=== PATIENT | male | born 1935 | race Caucasian/White ===

== ENCOUNTER 2021-12-20 17:41 | Inpatient (IN) ==
[2021-12-20] MEDS ORDERED: FUROSEMIDE 40 MG/4 ML VIAL IV STA (21:44)
[2021-12-20] MEDS ORDERED: ONDANSETRON 4 MG/2 ML VIAL IV STA (21:44)
[2021-12-20] MEDS ORDERED: methylPREDNISolone SOD SUC 125 MG/2 ML VIAL IV STA (21:44)
[2021-12-20 21:52] LABS: Basophils # 0.1 10*3/uL (0.0-0.2); Basophils % 0.7 % (0.0-0.8); Eosinophils # 1.1 10*3/uL (0.0-0.87); Eosinophils % 9.5 % (0.00-10.9); Hematocrit 28.2 VOL% (42.0-52.0); Hemoglobin 8.3 GM/DL (14.0-18.0); Immature Granulocytes % 0.4 %; Immature Granulocytes Absolute 0.05 #; Lymphocytes # 1.7 10*3/uL (1.4-4.0); Lymphocytes % 14.4 % (21.2-54.2); Mean Corpuscular HGB Conc 29.4 GM/DL (32-36); Mean Corpuscular Volume 81.7 FL (87-102); Mean Platelet Volume 10.4 FL (9.6-12.0); Monocytes % 11.6 % (1.7-12.7); Neutrophils % 63.4 % (38.7-73.9); Platelet Count 378 T/CUMM (130-400); Red Blood Count 3.45 MC/CUMM (3.8-5.5); Red Cell Distribution Width 17.1 % (9.3-17.3); White Blood Count 11.4 T/CUMM (4-12)
[2021-12-20] MEDS ORDERED: MORPHINE 4 MG/1 ML VIAL ONE (21:52)
[2021-12-20] MEDS ORDERED: MORPHINE 4 MG/1 ML VIAL IV STA (21:55)
[2021-12-20 21:59] LABS: PT Patient Result 11.5 SECS (10.5-12.0)
[2021-12-20] MEDS ORDERED: ALBUTEROL NEB SOLN 5 MG/ML 20 ML/BOTTLE CONT NEB SCH (22:00)
[2021-12-20 22:12] LABS: Alanine Aminotransferase 21 U/L (16-61); Alkaline Phosphatase 64 U/L (45-117); Aspartate Amino Transferase 17 U/L (0-37); Bilirubin,Total < 0.39 MG/DL (0.20-1.00); Blood Urea Nitrogen 39 MG/DL (7-18); Calcium 8.6 MG/DL (8.5-10.1); Carbon Dioxide 30 MMOL/L (21-32); Estimated Glom Filtration Rate 39 ML/MIN; Glucose 151 MG/DL (74-106); Osmolality,Calculated 286.7 MOS/KG (273-304); Potassium 5.9 MMOL/L (3.5-5.1); Sodium 138 MMOL/L (136-145); Total Protein 7.6 G/DL (6.4-8.2)
[2021-12-20] MEDS ORDERED: SODIUM CHLORIDE 0.9% 500 ML IV STA (22:27)
[2021-12-20] MEDS ORDERED: cefTRIAXone 1,000 MG in SODIUM CHLORIDE 0.9% 100 ML IV STA (22:28)
[2021-12-20] MEDS ORDERED: ACETAMINOPHEN 325 MG TABLET PO PRN (23:43)
[2021-12-20] MEDS ORDERED: GLUCAGON 1 MG VIAL IM PRN (23:43)
[2021-12-20] MEDS ORDERED: ALBUTEROL/IPRATROPIUM 3 ML NEB RESP TX SCH (23:43)
[2021-12-20] MEDS ORDERED: ONDANSETRON 4 MG/2 ML VIAL IV PRN (23:43)
[2021-12-20] MEDS ORDERED: DEXTROSE 10% 250 ML BAG IV PRN (23:46)
[2021-12-21] MEDS: SODIUM CHLORIDE 0.9% 1,000 ML IV SCH ×2 (01:04→18:47)
[2021-12-21] MEDS: INSULIN REGULAR 100 UNIT/ML SUBCUT SCH ×4 (01:09→18:47)
[2021-12-21 05:09] LABS: Basophils % 0.4 % (0.0-0.8); Eosinophils % 0.3 % (0.00-10.9); Hematocrit 25.9 VOL% (42.0-52.0); Hemoglobin 7.7 GM/DL (14.0-18.0); Immature Granulocytes % 0.9 %; Immature Granulocytes Absolute 0.09 #; Lymphocytes # 0.6 10*3/uL (1.4-4.0); Lymphocytes % 5.7 % (21.2-54.2); Mean Corpuscular HGB Conc 29.7 GM/DL (32-36); Mean Corpuscular Volume 81.2 FL (87-102); Mean Platelet Volume 10.4 FL (9.6-12.0); Monocytes % 1.1 % (1.7-12.7); Neutrophils % 91.6 % (38.7-73.9); Platelet Count 361 T/CUMM (130-400); Red Blood Count 3.19 MC/CUMM (3.8-5.5); Red Cell Distribution Width 16.9 % (9.3-17.3); White Blood Count 9.9 T/CUMM (4-12)
[2021-12-21 05:32] LABS: Albumin 2.9 G/DL (3.4-5.0); Bilirubin,Total 0.4 MG/DL (0.20-1.00); Calcium 8.4 MG/DL (8.5-10.1); Hypochromia 1+; Lymphocytes 3 % (20-55); Microcytosis 1+; Polychromasia Slight; Potassium 5.1 MMOL/L (3.5-5.1); Segmented Neutrophils 96 % (50-85); Total Cells Counted 100; Total Protein 7.4 G/DL (6.4-8.2)
[2021-12-21 05:33] LABS: Ovalocytes Slight; Platelet Estimate Normal
[2021-12-21] MEDS: DOCUSATE SODIUM 100 MG CAPSULE PO SCH ×2 (09:00→21:32)
[2021-12-21] MEDS: ENOXAPARIN 40 MG/0.4 ML SYRINGE SUBCUT SCH (09:44)
[2021-12-21] MEDS: PANTOPRAZOLE 40 MG VIAL IV SCH (09:45)
[2021-12-21] MEDS: methylPREDNISolone SOD SUC 40 MG/1 ML VIAL IV SCH ×2 (10:31→21:32)
[2021-12-21] MEDS ORDERED: NITROGLYCERIN SL 0.4 MG TABLET SL PRN (10:39)
[2021-12-21] MEDS: ALBUTEROL/IPRATROPIUM 3 ML NEB RESP TX SCH ×2 (12:20→19:40)
[2021-12-21] MEDS: ASPIRIN CHEW 81 MG TABLET PO SCH (15:27)
[2021-12-21] MEDS: MULTIVITAMIN (CENTRUM) TABLET PO SCH (15:27)
[2021-12-21] MEDS: BENZONATATE 100 MG CAPSULE PO SCH ×2 (15:28→21:32)
[2021-12-21] MEDS: GABAPENTIN 300 MG CAPSULE PO SCH ×3 (15:28→21:31)
[2021-12-21] MEDS: AMITRIPTYLINE 50 MG TABLET PO SCH ×2 (17:48→21:31)
[2021-12-21] MEDS: PENTOXIFYLLINE 400 MG TABLET PO SCH ×2 (17:48→18:15)
[2021-12-21] MEDS: glipiZIDE 5 MG TABLET PO SCH (18:14)
[2021-12-21] MEDS: INSULIN GLARGINE 100 UNIT/ML SUBCUT SCH (21:30)
[2021-12-21] MEDS: tiZANidine 4 MG TABLET PO SCH (21:30)
[2021-12-21] MEDS: traZODone 50 MG TABLET PO SCH (21:31)
[2021-12-21] MEDS: MORPHINE ER 30 MG TABLET PO SCH (21:31)
[2021-12-21] MEDS: carvediloL 3.125 MG TABLET PO SCH (21:32)
[2021-12-21] MEDS: SIMVASTATIN 40 MG TABLET PO SCH (21:32)
[2021-12-21] MEDS: cefTRIAXone 1,000 MG in SODIUM CHLORIDE 0.9% 100 ML IV SCH (21:32)
[2021-12-22] MEDS: INSULIN REGULAR 100 UNIT/ML SUBCUT SCH ×5 (00:02→18:40)
[2021-12-22] MEDS: ALBUTEROL/IPRATROPIUM 3 ML NEB RESP TX SCH ×4 (01:27→19:58)
[2021-12-22] MEDS: SODIUM CHLORIDE 0.9% 1,000 ML IV SCH (05:21)
[2021-12-22 05:26] LABS: Basophils % 0.1 % (0.0-0.8); Hematocrit 25.1 VOL% (42.0-52.0); Hemoglobin 7.4 GM/DL (14.0-18.0); Immature Granulocytes % 1.3 %; Immature Granulocytes Absolute 0.13 #; Lymphocytes % 9.8 % (21.2-54.2); Mean Corpuscular HGB Conc 29.5 GM/DL (32-36); Mean Corpuscular Volume 80.7 FL (87-102); Mean Platelet Volume 10.1 FL (9.6-12.0); Monocytes % 5.4 % (1.7-12.7); Neutrophils % 83.4 % (38.7-73.9); Platelet Count 339 T/CUMM (130-400); Red Blood Count 3.11 MC/CUMM (3.8-5.5); Red Cell Distribution Width 17.1 % (9.3-17.3); White Blood Count 10.1 T/CUMM (4-12)
[2021-12-22 05:47] LABS: Calcium 8.5 MG/DL (8.5-10.1); Osmolality,Calculated 284.4 MOS/KG (273-304); Potassium 5.7 MMOL/L (3.5-5.1)
[2021-12-22] MEDS ORDERED: FUROSEMIDE 40 MG/4 ML VIAL IV ONE (08:48)
[2021-12-22] MEDS ORDERED: ENALAPRIL 5 MG TABLET PO SCH (09:00)
[2021-12-22] MEDS: glipiZIDE 10 MG TABLET PO SCH (09:00)
[2021-12-22 09:30] LABS: % Iron Saturation 4.1 % (18-50); Ferritin 13.8 ng/mL (26-388)
[2021-12-22] MEDS: methylPREDNISolone SOD SUC 40 MG/1 ML VIAL IV SCH ×2 (09:51→21:45)
[2021-12-22] MEDS: ENOXAPARIN 40 MG/0.4 ML SYRINGE SUBCUT SCH (09:52)
[2021-12-22] MEDS: PANTOPRAZOLE 40 MG VIAL IV SCH (09:52)
[2021-12-22] MEDS: BENZONATATE 100 MG CAPSULE PO SCH ×3 (09:53→21:44)
[2021-12-22] MEDS: carvediloL 3.125 MG TABLET PO SCH ×2 (09:53→21:45)
[2021-12-22] MEDS: SERTRALINE 50 MG TABLET PO SCH (09:53)
[2021-12-22] MEDS: ASCORBIC ACID 500 MG TABLET PO SCH (09:54)
[2021-12-22] MEDS: PENTOXIFYLLINE 400 MG TABLET PO SCH ×3 (09:54→16:34)
[2021-12-22] MEDS: AMITRIPTYLINE 50 MG TABLET PO SCH ×3 (09:54→21:44)
[2021-12-22] MEDS: GABAPENTIN 300 MG CAPSULE PO SCH ×4 (09:54→21:45)
[2021-12-22] MEDS: DOCUSATE SODIUM 100 MG CAPSULE PO SCH ×2 (09:54→21:45)
[2021-12-22] MEDS: MORPHINE ER 30 MG TABLET PO SCH ×3 (10:39→21:44)
[2021-12-22] MEDS: sitaGLIPtin 25 MG TABLET PO SCH (12:18)
[2021-12-22] MEDS: ASPIRIN CHEW 81 MG TABLET PO SCH (12:19)
[2021-12-22] MEDS: MULTIVITAMIN (CENTRUM) TABLET PO SCH (12:19)
[2021-12-22] MEDS: glipiZIDE 5 MG TABLET PO SCH (16:34)
[2021-12-22] MEDS: tiZANidine 4 MG TABLET PO SCH (21:44)
[2021-12-22] MEDS: traZODone 50 MG TABLET PO SCH (21:45)
[2021-12-22] MEDS: SIMVASTATIN 40 MG TABLET PO SCH (21:45)
[2021-12-22] MEDS: INSULIN GLARGINE 100 UNIT/ML SUBCUT SCH (21:46)
[2021-12-22] MEDS: cefTRIAXone 1,000 MG in SODIUM CHLORIDE 0.9% 100 ML IV SCH (21:46)
[2021-12-23] MEDS: INSULIN REGULAR 100 UNIT/ML SUBCUT SCH ×4 (00:05→17:57)
[2021-12-23] MEDS: ALBUTEROL/IPRATROPIUM 3 ML NEB RESP TX SCH ×4 (01:38→19:35)
[2021-12-23 05:43] LABS: Basophils % 0.1 % (0.0-0.8); Hematocrit 23.6 VOL% (42.0-52.0); Hemoglobin 7.1 GM/DL (14.0-18.0); Immature Granulocytes % 1.1 %; Immature Granulocytes Absolute 0.11 #; Lymphocytes # 0.5 10*3/uL (1.4-4.0); Lymphocytes % 4.8 % (21.2-54.2); Mean Corpuscular HGB Conc 30.1 GM/DL (32-36); Mean Corpuscular Volume 81.1 FL (87-102); Mean Platelet Volume 9.8 FL (9.6-12.0); Monocytes % 3.4 % (1.7-12.7); Neutrophils % 90.6 % (38.7-73.9); Platelet Count 336 T/CUMM (130-400); Red Blood Count 2.91 MC/CUMM (3.8-5.5); White Blood Count 10.3 T/CUMM (4-12)
[2021-12-23 06:01] LABS: Calcium 8.2 MG/DL (8.5-10.1); Osmolality,Calculated 288.2 MOS/KG (273-304); Potassium 5.7 MMOL/L (3.5-5.1)
[2021-12-23 06:03] LABS: Band Neutrophils 1 % (0-10); Hypochromia 1+; Lymphocytes 2 % (20-55); Microcytosis 1+; Platelet Estimate Adequate; Segmented Neutrophils 95 % (50-85); Total Cells Counted 100
[2021-12-23] MEDS: PENTOXIFYLLINE 400 MG TABLET PO SCH ×4 (08:32→16:24)
[2021-12-23] MEDS: BENZONATATE 100 MG CAPSULE PO SCH ×3 (08:32→22:02)
[2021-12-23] MEDS: glipiZIDE 10 MG TABLET PO SCH (08:32)
[2021-12-23] MEDS: GABAPENTIN 300 MG CAPSULE PO SCH ×5 (08:32→22:03)
[2021-12-23] MEDS: ASCORBIC ACID 500 MG TABLET PO SCH (08:32)
[2021-12-23] MEDS: MORPHINE ER 30 MG TABLET PO SCH ×3 (08:32→22:03)
[2021-12-23] MEDS: AMITRIPTYLINE 50 MG TABLET PO SCH ×3 (08:32→22:02)
[2021-12-23] MEDS: ENOXAPARIN 40 MG/0.4 ML SYRINGE SUBCUT SCH (08:33)
[2021-12-23] MEDS: DOCUSATE SODIUM 100 MG CAPSULE PO SCH ×2 (08:33→22:02)
[2021-12-23] MEDS: methylPREDNISolone SOD SUC 40 MG/1 ML VIAL IV SCH ×2 (08:33→22:04)
[2021-12-23] MEDS: carvediloL 3.125 MG TABLET PO SCH ×2 (08:33→22:03)
[2021-12-23] MEDS: SERTRALINE 50 MG TABLET PO SCH (08:33)
[2021-12-23] MEDS: PANTOPRAZOLE 40 MG VIAL IV SCH (08:33)
[2021-12-23] MEDS ORDERED: FUROSEMIDE 40 MG/4 ML VIAL IV PRN (09:00)
[2021-12-23] MEDS ORDERED: SODIUM CHLORIDE 0.9% 1,000 ML IV PRN (09:00)
[2021-12-23] MEDS: MULTIVITAMIN (CENTRUM) TABLET PO SCH (12:38)
[2021-12-23] MEDS: sitaGLIPtin 25 MG TABLET PO SCH (12:38)
[2021-12-23] MEDS: ASPIRIN CHEW 81 MG TABLET PO SCH (12:38)
[2021-12-23] MEDS: POLYETHYLENE GLYCOL POWDER 17 GM PACK PO SCH (15:51)
[2021-12-23] MEDS: glipiZIDE 5 MG TABLET PO SCH (15:52)
[2021-12-23 18:28] LABS: Hematocrit 31.6 VOL% (42.0-52.0); Hemoglobin 9.6 GM/DL (14.0-18.0)
[2021-12-23] MEDS: tiZANidine 4 MG TABLET PO SCH (22:01)
[2021-12-23] MEDS: SIMVASTATIN 40 MG TABLET PO SCH (22:02)
[2021-12-23] MEDS: traZODone 50 MG TABLET PO SCH (22:03)
[2021-12-23] MEDS: INSULIN GLARGINE 100 UNIT/ML SUBCUT SCH (22:03)
[2021-12-23] MEDS: cefTRIAXone 1,000 MG in SODIUM CHLORIDE 0.9% 100 ML IV SCH (22:04)
[2021-12-24] MEDS: ALBUTEROL/IPRATROPIUM 3 ML NEB RESP TX SCH ×4 (00:51→19:30)
[2021-12-24] MEDS: INSULIN REGULAR 100 UNIT/ML SUBCUT SCH ×4 (05:39→18:20)
[2021-12-24 06:13] LABS: Basophils % 0.2 % (0.0-0.8); Hematocrit 30.4 VOL% (42.0-52.0); Hemoglobin 9.1 GM/DL (14.0-18.0); Immature Granulocytes % 1.7 %; Immature Granulocytes Absolute 0.17 #; Lymphocytes # 0.7 10*3/uL (1.4-4.0); Lymphocytes % 6.7 % (21.2-54.2); Mean Corpuscular HGB Conc 29.9 GM/DL (32-36); Mean Corpuscular Volume 81.3 FL (87-102); Monocytes % 5.3 % (1.7-12.7); Neutrophils % 86.1 % (38.7-73.9); Platelet Count 340 T/CUMM (130-400); Red Blood Count 3.74 MC/CUMM (3.8-5.5); White Blood Count 9.9 T/CUMM (4-12)
[2021-12-24 06:29] LABS: Calcium 8.4 MG/DL (8.5-10.1); Potassium 5.3 MMOL/L (3.5-5.1)
[2021-12-24] MEDS: ASCORBIC ACID 500 MG TABLET PO SCH (08:40)
[2021-12-24] MEDS: PENTOXIFYLLINE 400 MG TABLET PO SCH ×3 (08:40→16:18)
[2021-12-24] MEDS: carvediloL 3.125 MG TABLET PO SCH ×2 (08:40→21:31)
[2021-12-24] MEDS: PANTOPRAZOLE 40 MG VIAL IV SCH (08:40)
[2021-12-24] MEDS: ENOXAPARIN 40 MG/0.4 ML SYRINGE SUBCUT SCH (08:40)
[2021-12-24] MEDS: methylPREDNISolone SOD SUC 40 MG/1 ML VIAL IV SCH (08:40)
[2021-12-24] MEDS: DOCUSATE SODIUM 100 MG CAPSULE PO SCH ×2 (08:41→21:31)
[2021-12-24] MEDS: glipiZIDE 10 MG TABLET PO SCH (08:41)
[2021-12-24] MEDS: GABAPENTIN 300 MG CAPSULE PO SCH ×4 (08:41→21:31)
[2021-12-24] MEDS: POLYETHYLENE GLYCOL POWDER 17 GM PACK PO SCH (08:41)
[2021-12-24] MEDS: SERTRALINE 50 MG TABLET PO SCH (08:41)
[2021-12-24] MEDS: MORPHINE ER 30 MG TABLET PO SCH ×3 (08:41→21:31)
[2021-12-24] MEDS: AMITRIPTYLINE 50 MG TABLET PO SCH ×3 (08:41→21:30)
[2021-12-24] MEDS: BENZONATATE 100 MG CAPSULE PO SCH ×3 (08:41→21:32)
[2021-12-24] MEDS: sitaGLIPtin 25 MG TABLET PO SCH (12:38)
[2021-12-24] MEDS: ASPIRIN CHEW 81 MG TABLET PO SCH (12:38)
[2021-12-24] MEDS: MULTIVITAMIN (CENTRUM) TABLET PO SCH (12:38)
[2021-12-24] MEDS: glipiZIDE 5 MG TABLET PO SCH (16:18)
[2021-12-24] MEDS: traZODone 50 MG TABLET PO SCH (21:31)
[2021-12-24] MEDS: SIMVASTATIN 40 MG TABLET PO SCH (21:31)
[2021-12-24] MEDS: INSULIN GLARGINE 100 UNIT/ML SUBCUT SCH (21:32)
[2021-12-24] MEDS: cefTRIAXone 1,000 MG in SODIUM CHLORIDE 0.9% 100 ML IV SCH (21:32)
[2021-12-24] MEDS: tiZANidine 4 MG TABLET PO SCH (21:32)
[2021-12-25] MEDS: ALBUTEROL/IPRATROPIUM 3 ML NEB RESP TX SCH ×4 (00:20→19:37)
[2021-12-25] MEDS: INSULIN REGULAR 100 UNIT/ML SUBCUT SCH ×5 (00:23→23:54)
[2021-12-25 05:32] LABS: Basophils % 0.2 % (0.0-0.8); Eosinophils # 0.1 10*3/uL (0.0-0.87); Eosinophils % 0.5 % (0.00-10.9); Hematocrit 32.4 VOL% (42.0-52.0); Hemoglobin 9.6 GM/DL (14.0-18.0); Immature Granulocytes % 1.5 %; Immature Granulocytes Absolute 0.16 #; Lymphocytes # 1.8 10*3/uL (1.4-4.0); Lymphocytes % 16.6 % (21.2-54.2); Mean Corpuscular HGB Conc 29.6 GM/DL (32-36); Mean Corpuscular Volume 83.7 FL (87-102); Mean Platelet Volume 10.1 FL (9.6-12.0); Monocytes % 12.4 % (1.7-12.7); Neutrophils % 68.8 % (38.7-73.9); Platelet Count 339 T/CUMM (130-400); Red Blood Count 3.87 MC/CUMM (3.8-5.5); Red Cell Distribution Width 17.3 % (9.3-17.3); White Blood Count 10.8 T/CUMM (4-12)
[2021-12-25 05:46] LABS: Calcium 9.1 MG/DL (8.5-10.1); Osmolality,Calculated 288.5 MOS/KG (273-304); Potassium 4.8 MMOL/L (3.5-5.1)
[2021-12-25] MEDS: POLYETHYLENE GLYCOL POWDER 17 GM PACK PO SCH (09:55)
[2021-12-25] MEDS: MORPHINE ER 30 MG TABLET PO SCH ×3 (09:55→21:00)
[2021-12-25] MEDS: DOCUSATE SODIUM 100 MG CAPSULE PO SCH ×2 (09:55→21:00)
[2021-12-25] MEDS: carvediloL 3.125 MG TABLET PO SCH ×2 (09:55→21:00)
[2021-12-25] MEDS: AMITRIPTYLINE 50 MG TABLET PO SCH ×3 (09:55→21:00)
[2021-12-25] MEDS: ASCORBIC ACID 500 MG TABLET PO SCH (09:56)
[2021-12-25] MEDS: SERTRALINE 50 MG TABLET PO SCH (09:56)
[2021-12-25] MEDS: glipiZIDE 10 MG TABLET PO SCH (09:56)
[2021-12-25] MEDS: GABAPENTIN 300 MG CAPSULE PO SCH ×4 (09:56→21:00)
[2021-12-25] MEDS: methylPREDNISolone SOD SUC 40 MG/1 ML VIAL IV SCH (09:57)
[2021-12-25] MEDS: PANTOPRAZOLE 40 MG VIAL IV SCH (09:57)
[2021-12-25] MEDS: PENTOXIFYLLINE 400 MG TABLET PO SCH ×3 (09:59→16:00)
[2021-12-25] MEDS: ENOXAPARIN 40 MG/0.4 ML SYRINGE SUBCUT SCH (09:59)
[2021-12-25] MEDS: BENZONATATE 100 MG CAPSULE PO SCH ×3 (09:59→20:59)
[2021-12-25] MEDS: ASPIRIN CHEW 81 MG TABLET PO SCH (12:46)
[2021-12-25] MEDS: MULTIVITAMIN (CENTRUM) TABLET PO SCH (12:46)
[2021-12-25] MEDS: sitaGLIPtin 25 MG TABLET PO SCH (12:46)
[2021-12-25] MEDS: glipiZIDE 5 MG TABLET PO SCH (15:54)
[2021-12-25] MEDS: cefTRIAXone 1,000 MG in SODIUM CHLORIDE 0.9% 100 ML IV SCH (20:59)
[2021-12-25] MEDS: SIMVASTATIN 40 MG TABLET PO SCH (21:00)
[2021-12-25] MEDS: tiZANidine 4 MG TABLET PO SCH (21:00)
[2021-12-25] MEDS: traZODone 50 MG TABLET PO SCH (21:02)
[2021-12-25] MEDS: INSULIN GLARGINE 100 UNIT/ML SUBCUT SCH (21:05)
[2021-12-26] MEDS: ALBUTEROL/IPRATROPIUM 3 ML NEB RESP TX SCH ×4 (00:04→19:25)
[2021-12-26] MEDS: INSULIN REGULAR 100 UNIT/ML SUBCUT SCH ×3 (05:50→17:48)
[2021-12-26] MEDS ORDERED: BISACODYL 10 MG SUPP RECTAL PRN (10:15)
[2021-12-26] MEDS: ENOXAPARIN 40 MG/0.4 ML SYRINGE SUBCUT SCH (11:00)
[2021-12-26] MEDS: MORPHINE ER 30 MG TABLET PO SCH ×3 (11:00→21:29)
[2021-12-26] MEDS: AMITRIPTYLINE 50 MG TABLET PO SCH ×3 (11:00→21:28)
[2021-12-26] MEDS: PENTOXIFYLLINE 400 MG TABLET PO SCH ×3 (11:01→17:30)
[2021-12-26] MEDS: carvediloL 3.125 MG TABLET PO SCH ×2 (11:01→21:28)
[2021-12-26] MEDS: DOCUSATE SODIUM 100 MG CAPSULE PO SCH ×2 (11:01→21:28)
[2021-12-26] MEDS: glipiZIDE 10 MG TABLET PO SCH ×4 (11:02→17:32)
[2021-12-26] MEDS: PANTOPRAZOLE 40 MG VIAL IV SCH (11:03)
[2021-12-26] MEDS: GABAPENTIN 300 MG CAPSULE PO SCH ×4 (11:04→21:28)
[2021-12-26] MEDS: methylPREDNISolone SOD SUC 40 MG/1 ML VIAL IV SCH (11:04)
[2021-12-26] MEDS: ASCORBIC ACID 500 MG TABLET PO SCH (11:05)
[2021-12-26] MEDS: BENZONATATE 100 MG CAPSULE PO SCH ×3 (11:05→21:27)
[2021-12-26] MEDS: SERTRALINE 50 MG TABLET PO SCH (11:06)
[2021-12-26] MEDS: POLYETHYLENE GLYCOL POWDER 17 GM PACK PO SCH ×2 (11:06→23:50)
[2021-12-26] MEDS: MULTIVITAMIN (CENTRUM) TABLET PO SCH (13:22)
[2021-12-26] MEDS: ASPIRIN CHEW 81 MG TABLET PO SCH (13:22)
[2021-12-26] MEDS: sitaGLIPtin 25 MG TABLET PO SCH (13:23)
[2021-12-26] MEDS: glipiZIDE 5 MG TABLET PO SCH (17:47)
[2021-12-26] MEDS: traZODone 50 MG TABLET PO SCH (21:28)
[2021-12-26] MEDS: SIMVASTATIN 40 MG TABLET PO SCH (21:28)
[2021-12-26] MEDS: tiZANidine 4 MG TABLET PO SCH (21:29)
[2021-12-26] MEDS: INSULIN GLARGINE 100 UNIT/ML SUBCUT SCH (21:32)
[2021-12-26] MEDS: cefTRIAXone 1,000 MG in SODIUM CHLORIDE 0.9% 100 ML IV SCH (21:37)
[2021-12-27] MEDS: ALBUTEROL/IPRATROPIUM 3 ML NEB RESP TX SCH ×3 (00:09→19:25)
[2021-12-27] MEDS: INSULIN REGULAR 100 UNIT/ML SUBCUT SCH ×4 (00:14→18:39)
[2021-12-27 05:19] LABS: Basophils % 0.2 % (0.0-0.8); Eosinophils # 0.2 10*3/uL (0.0-0.87); Eosinophils % 1.3 % (0.00-10.9); Hematocrit 32.4 VOL% (42.0-52.0); Hemoglobin 9.7 GM/DL (14.0-18.0); Immature Granulocytes % 1.5 %; Immature Granulocytes Absolute 0.17 #; Lymphocytes # 1.7 10*3/uL (1.4-4.0); Lymphocytes % 14.8 % (21.2-54.2); Mean Corpuscular HGB Conc 29.9 GM/DL (32-36); Mean Corpuscular Volume 82.9 FL (87-102); Mean Platelet Volume 9.6 FL (9.6-12.0); Monocytes % 11.8 % (1.7-12.7); Neutrophils % 70.4 % (38.7-73.9); Platelet Count 340 T/CUMM (130-400); Red Blood Count 3.91 MC/CUMM (3.8-5.5); Red Cell Distribution Width 17.1 % (9.3-17.3); White Blood Count 11.2 T/CUMM (4-12)
[2021-12-27] MEDS ORDERED: SODIUM CHLORIDE 0.9% 500 ML IV SCH (07:00)
[2021-12-27 07:49] LABS: Calcium 8.6 MG/DL (8.5-10.1); Osmolality,Calculated 295.1 MOS/KG (273-304)
[2021-12-27] MEDS ORDERED: LACTATED RINGERS 1,000 ML IV SCH (08:00)
[2021-12-27] MEDS: BENZONATATE 100 MG CAPSULE PO SCH ×3 (08:01→21:32)
[2021-12-27] MEDS: GABAPENTIN 300 MG CAPSULE PO SCH ×4 (08:02→21:32)
[2021-12-27] MEDS ORDERED: ETOMIDATE 20 MG/10 ML VIAL IV ONE (09:26)
[2021-12-27] MEDS ORDERED: propofoL 200 MG/20 ML VIAL IV ONE (09:26)
[2021-12-27] MEDS ORDERED: LIDOCAINE 2% 5 ML VIAL ONE (09:26)
[2021-12-27] MEDS: glipiZIDE 10 MG TABLET PO SCH (10:36)
[2021-12-27] MEDS: PENTOXIFYLLINE 400 MG TABLET PO SCH ×3 (10:37→16:34)
[2021-12-27] MEDS: AMITRIPTYLINE 50 MG TABLET PO SCH ×3 (10:37→21:32)
[2021-12-27] MEDS: SERTRALINE 50 MG TABLET PO SCH (10:37)
[2021-12-27] MEDS: MORPHINE ER 30 MG TABLET PO SCH ×3 (10:37→21:32)
[2021-12-27] MEDS: DOCUSATE SODIUM 100 MG CAPSULE PO SCH ×2 (10:37→21:33)
[2021-12-27] MEDS: ASCORBIC ACID 500 MG TABLET PO SCH (10:37)
[2021-12-27] MEDS: carvediloL 3.125 MG TABLET PO SCH ×2 (10:38→21:32)
[2021-12-27] MEDS: POLYETHYLENE GLYCOL POWDER 17 GM PACK PO SCH (11:03)
[2021-12-27] MEDS: ENOXAPARIN 40 MG/0.4 ML SYRINGE SUBCUT SCH (11:03)
[2021-12-27] MEDS: methylPREDNISolone SOD SUC 40 MG/1 ML VIAL IV SCH (11:59)
[2021-12-27] MEDS: PANTOPRAZOLE 40 MG VIAL IV SCH (11:59)
[2021-12-27] MEDS ORDERED: BISACODYL 5 MG TABLET PO ONE (12:00)
[2021-12-27] MEDS: sitaGLIPtin 25 MG TABLET PO SCH (12:11)
[2021-12-27] MEDS: ASPIRIN CHEW 81 MG TABLET PO SCH (12:11)
[2021-12-27] MEDS: MULTIVITAMIN (CENTRUM) TABLET PO SCH (12:11)
[2021-12-27] MEDS: glipiZIDE 5 MG TABLET PO SCH (16:34)
[2021-12-27] MEDS ORDERED: POLYETHYLENE GLYCOL POWDER 255 GM BOTTLE PO ONE (18:00)
[2021-12-27] MEDS ORDERED: MAGNESIUM CITRATE 300 ML BOTTLE PO ONE (21:00)
[2021-12-27] MEDS: cefTRIAXone 1,000 MG in SODIUM CHLORIDE 0.9% 100 ML IV SCH (21:30)
[2021-12-27] MEDS: tiZANidine 4 MG TABLET PO SCH (21:31)
[2021-12-27] MEDS: SIMVASTATIN 40 MG TABLET PO SCH (21:32)
[2021-12-27] MEDS: traZODone 50 MG TABLET PO SCH (21:32)
[2021-12-27] MEDS: INSULIN GLARGINE 100 UNIT/ML SUBCUT SCH (21:37)
[2021-12-28] MEDS: ALBUTEROL/IPRATROPIUM 3 ML NEB RESP TX SCH ×5 (00:15→19:35)
[2021-12-28] MEDS: INSULIN REGULAR 100 UNIT/ML SUBCUT SCH ×4 (01:12→17:54)
[2021-12-28 05:57] LABS: PT Patient Result 11.5 SECS (10.5-12.0)
[2021-12-28] MEDS ORDERED: LACTATED RINGERS 1,000 ML IV SCH (08:00)
[2021-12-28] MEDS: PENTOXIFYLLINE 400 MG TABLET PO SCH ×3 (10:10→17:05)
[2021-12-28] MEDS: glipiZIDE 10 MG TABLET PO SCH (10:10)
[2021-12-28] MEDS: BENZONATATE 100 MG CAPSULE PO SCH ×3 (10:11→20:46)
[2021-12-28] MEDS: GABAPENTIN 300 MG CAPSULE PO SCH ×4 (10:11→20:47)
[2021-12-28] MEDS: AMITRIPTYLINE 50 MG TABLET PO SCH ×3 (11:41→20:46)
[2021-12-28] MEDS: ASPIRIN CHEW 81 MG TABLET PO SCH (11:41)
[2021-12-28] MEDS: carvediloL 3.125 MG TABLET PO SCH ×2 (11:41→20:47)
[2021-12-28] MEDS: MORPHINE ER 30 MG TABLET PO SCH ×3 (11:41→20:47)
[2021-12-28] MEDS: sitaGLIPtin 25 MG TABLET PO SCH (11:41)
[2021-12-28] MEDS: DOCUSATE SODIUM 100 MG CAPSULE PO SCH ×2 (11:41→20:47)
[2021-12-28] MEDS: SERTRALINE 50 MG TABLET PO SCH (11:42)
[2021-12-28] MEDS: ASCORBIC ACID 500 MG TABLET PO SCH (11:42)
[2021-12-28] MEDS: POLYETHYLENE GLYCOL POWDER 17 GM PACK PO SCH (11:42)
[2021-12-28] MEDS: predniSONE 20 MG TABLET PO SCH (11:42)
[2021-12-28] MEDS: MULTIVITAMIN (CENTRUM) TABLET PO SCH (11:42)
[2021-12-28] MEDS: PANTOPRAZOLE 40 MG VIAL IV SCH (11:47)
[2021-12-28] MEDS ORDERED: FLUCONAZOLE 100 MG TABLET PO ONE (17:00)
[2021-12-28] MEDS: glipiZIDE 5 MG TABLET PO SCH (17:05)
[2021-12-28] MEDS: SIMVASTATIN 40 MG TABLET PO SCH (20:46)
[2021-12-28] MEDS: tiZANidine 4 MG TABLET PO SCH (20:47)
[2021-12-28] MEDS: traZODone 50 MG TABLET PO SCH (20:47)
[2021-12-28] MEDS: cefTRIAXone 1,000 MG in SODIUM CHLORIDE 0.9% 100 ML IV SCH (20:50)
[2021-12-28] MEDS: INSULIN GLARGINE 100 UNIT/ML SUBCUT SCH (20:56)
[2021-12-28] MEDS ORDERED: KETOROLAC 15 MG/1 ML VIAL IV ONE (21:02)
[2021-12-29] MEDS: ALBUTEROL/IPRATROPIUM 3 ML NEB RESP TX SCH ×4 (00:10→19:36)
[2021-12-29] MEDS: INSULIN REGULAR 100 UNIT/ML SUBCUT SCH ×4 (00:12→18:08)
[2021-12-29 05:10] LABS: Basophils % 0.1 % (0.0-0.8); Eosinophils # 0.1 10*3/uL (0.0-0.87); Eosinophils % 1.6 % (0.00-10.9); Hematocrit 30.4 VOL% (42.0-52.0); Hemoglobin 8.9 GM/DL (14.0-18.0); Immature Granulocytes % 1.4 %; Immature Granulocytes Absolute 0.12 #; Lymphocytes # 1.6 10*3/uL (1.4-4.0); Lymphocytes % 17.9 % (21.2-54.2); Mean Corpuscular HGB Conc 29.3 GM/DL (32-36); Mean Corpuscular Volume 83.3 FL (87-102); Mean Platelet Volume 9.5 FL (9.6-12.0); Monocytes % 10.7 % (1.7-12.7); Neutrophils % 68.3 % (38.7-73.9); Platelet Count 296 T/CUMM (130-400); Red Blood Count 3.65 MC/CUMM (3.8-5.5); Red Cell Distribution Width 17.5 % (9.3-17.3); White Blood Count 8.7 T/CUMM (4-12)
[2021-12-29 07:42] LABS: Calcium 8.3 MG/DL (8.5-10.1)
[2021-12-29 07:46] LABS: Potassium 4.2 MMOL/L (3.5-5.1)
[2021-12-29 08:00] LABS: Osmolality,Calculated 286.5 MOS/KG (273-304)
[2021-12-29] MEDS: POLYETHYLENE GLYCOL POWDER 17 GM PACK PO SCH (09:14)
[2021-12-29] MEDS: carvediloL 3.125 MG TABLET PO SCH ×2 (09:15→21:47)
[2021-12-29] MEDS: glipiZIDE 10 MG TABLET PO SCH (09:15)
[2021-12-29] MEDS: PANTOPRAZOLE 40 MG VIAL IV SCH (09:15)
[2021-12-29] MEDS: DOCUSATE SODIUM 100 MG CAPSULE PO SCH ×2 (09:15→21:46)
[2021-12-29] MEDS: BENZONATATE 100 MG CAPSULE PO SCH ×3 (09:15→22:13)
[2021-12-29] MEDS: GABAPENTIN 300 MG CAPSULE PO SCH ×4 (09:16→21:47)
[2021-12-29] MEDS: SERTRALINE 50 MG TABLET PO SCH (09:16)
[2021-12-29] MEDS: PENTOXIFYLLINE 400 MG TABLET PO SCH ×3 (09:16→16:31)
[2021-12-29] MEDS: predniSONE 20 MG TABLET PO SCH (09:16)
[2021-12-29] MEDS: FLUCONAZOLE 100 MG TABLET PO SCH (09:16)
[2021-12-29] MEDS: AMITRIPTYLINE 50 MG TABLET PO SCH ×3 (09:16→21:47)
[2021-12-29] MEDS: ASCORBIC ACID 500 MG TABLET PO SCH (09:16)
[2021-12-29] MEDS: ASPIRIN CHEW 81 MG TABLET PO SCH (11:45)
[2021-12-29] MEDS: sitaGLIPtin 25 MG TABLET PO SCH (11:45)
[2021-12-29] MEDS: MULTIVITAMIN (CENTRUM) TABLET PO SCH (11:45)
[2021-12-29] MEDS: glipiZIDE 5 MG TABLET PO SCH (16:31)
[2021-12-29] MEDS: SIMVASTATIN 40 MG TABLET PO SCH (21:46)
[2021-12-29] MEDS: tiZANidine 4 MG TABLET PO SCH (21:47)
[2021-12-29] MEDS: traZODone 50 MG TABLET PO SCH (21:48)
[2021-12-30] MEDS: INSULIN REGULAR 100 UNIT/ML SUBCUT SCH ×5 (00:30→23:22)
[2021-12-30] MEDS: INSULIN GLARGINE 100 UNIT/ML SUBCUT SCH ×2 (00:30→22:24)
[2021-12-30] MEDS: ALBUTEROL/IPRATROPIUM 3 ML NEB RESP TX SCH ×4 (00:52→19:27)
[2021-12-30] MEDS: POLYETHYLENE GLYCOL POWDER 17 GM PACK PO SCH (10:03)
[2021-12-30] MEDS: glipiZIDE 10 MG TABLET PO SCH (10:03)
[2021-12-30] MEDS: GABAPENTIN 300 MG CAPSULE PO SCH ×4 (10:03→22:25)
[2021-12-30] MEDS: FLUCONAZOLE 100 MG TABLET PO SCH (10:04)
[2021-12-30] MEDS: SERTRALINE 50 MG TABLET PO SCH (10:04)
[2021-12-30] MEDS: AMITRIPTYLINE 50 MG TABLET PO SCH ×3 (10:04→22:26)
[2021-12-30] MEDS: predniSONE 20 MG TABLET PO SCH (10:04)
[2021-12-30] MEDS: DOCUSATE SODIUM 100 MG CAPSULE PO SCH ×2 (10:04→22:26)
[2021-12-30] MEDS: BENZONATATE 100 MG CAPSULE PO SCH ×3 (10:04→22:35)
[2021-12-30] MEDS: PENTOXIFYLLINE 400 MG TABLET PO SCH ×3 (10:04→16:06)
[2021-12-30] MEDS: ASCORBIC ACID 500 MG TABLET PO SCH (10:04)
[2021-12-30] MEDS: PANTOPRAZOLE 40 MG VIAL IV SCH (10:05)
[2021-12-30] MEDS: carvediloL 3.125 MG TABLET PO SCH ×2 (10:06→22:26)
[2021-12-30] MEDS: ASPIRIN CHEW 81 MG TABLET PO SCH (11:37)
[2021-12-30] MEDS: MULTIVITAMIN (CENTRUM) TABLET PO SCH (11:37)
[2021-12-30] MEDS: sitaGLIPtin 25 MG TABLET PO SCH (11:38)
[2021-12-30] MEDS: glipiZIDE 5 MG TABLET PO SCH (16:06)
[2021-12-30] MEDS ORDERED: MORPHINE ER 15 MG TABLET PO SCH (17:00)
[2021-12-30] MEDS: traZODone 50 MG TABLET PO SCH (22:25)
[2021-12-30] MEDS: MORPHINE ER 15 MG TABLET PO SCH (22:25)
[2021-12-30] MEDS: tiZANidine 4 MG TABLET PO SCH (22:26)
[2021-12-30] MEDS: SIMVASTATIN 40 MG TABLET PO SCH (22:26)
[2021-12-31] MEDS: INSULIN REGULAR 100 UNIT/ML SUBCUT SCH ×4 (00:24→17:20)
[2021-12-31] MEDS: ALBUTEROL/IPRATROPIUM 3 ML NEB RESP TX SCH ×4 (00:43→19:37)
[2021-12-31 05:52] LABS: Basophils % 0.3 % (0.0-0.8); Eosinophils # 0.2 10*3/uL (0.0-0.87); Eosinophils % 2.3 % (0.00-10.9); Hematocrit 31.1 VOL% (42.0-52.0); Hemoglobin 9.4 GM/DL (14.0-18.0); Immature Granulocytes % 1.1 %; Immature Granulocytes Absolute 0.11 #; Lymphocytes # 1.9 10*3/uL (1.4-4.0); Lymphocytes % 19.2 % (21.2-54.2); Mean Corpuscular HGB Conc 30.2 GM/DL (32-36); Mean Corpuscular Volume 83.8 FL (87-102); Mean Platelet Volume 10.4 FL (9.6-12.0); Monocytes % 11.1 % (1.7-12.7); Platelet Count 276 T/CUMM (130-400); Red Blood Count 3.71 MC/CUMM (3.8-5.5); White Blood Count 10.1 T/CUMM (4-12)
[2021-12-31 09:02] LABS: Calcium 8.3 MG/DL (8.5-10.1); Potassium 4.1 MMOL/L (3.5-5.1)
[2021-12-31 09:08] LABS: Osmolality,Calculated 287.1 MOS/KG (273-304)
[2021-12-31] MEDS: predniSONE 20 MG TABLET PO SCH (10:04)
[2021-12-31] MEDS: DOCUSATE SODIUM 100 MG CAPSULE PO SCH ×2 (10:05→21:56)
[2021-12-31] MEDS: glipiZIDE 10 MG TABLET PO SCH (10:05)
[2021-12-31] MEDS: carvediloL 3.125 MG TABLET PO SCH ×2 (10:05→21:56)
[2021-12-31] MEDS: ASCORBIC ACID 500 MG TABLET PO SCH (10:05)
[2021-12-31] MEDS: AMITRIPTYLINE 50 MG TABLET PO SCH ×3 (10:06→21:56)
[2021-12-31] MEDS: GABAPENTIN 300 MG CAPSULE PO SCH ×4 (10:06→21:55)
[2021-12-31] MEDS: SERTRALINE 50 MG TABLET PO SCH (10:07)
[2021-12-31] MEDS: FLUCONAZOLE 100 MG TABLET PO SCH (10:07)
[2021-12-31] MEDS: BENZONATATE 100 MG CAPSULE PO SCH ×3 (10:07→21:55)
[2021-12-31] MEDS: PENTOXIFYLLINE 400 MG TABLET PO SCH ×3 (10:08→17:19)
[2021-12-31] MEDS: MORPHINE ER 15 MG TABLET PO SCH ×3 (10:08→21:55)
[2021-12-31] MEDS: POLYETHYLENE GLYCOL POWDER 17 GM PACK PO SCH (10:09)
[2021-12-31] MEDS: PANTOPRAZOLE 40 MG VIAL IV SCH (10:09)
[2021-12-31] MEDS: ASPIRIN CHEW 81 MG TABLET PO SCH (13:03)
[2021-12-31] MEDS: MULTIVITAMIN (CENTRUM) TABLET PO SCH (13:03)
[2021-12-31] MEDS: sitaGLIPtin 25 MG TABLET PO SCH (13:03)
[2021-12-31] MEDS: glipiZIDE 5 MG TABLET PO SCH (15:50)
[2021-12-31] MEDS: INSULIN GLARGINE 100 UNIT/ML SUBCUT SCH (21:54)
[2021-12-31] MEDS: traZODone 50 MG TABLET PO SCH (21:55)
[2021-12-31] MEDS: SIMVASTATIN 40 MG TABLET PO SCH (21:56)
[2021-12-31] MEDS: tiZANidine 4 MG TABLET PO SCH (21:56)
[2022-01-01] MEDS: INSULIN REGULAR 100 UNIT/ML SUBCUT SCH ×4 (00:50→17:57)
[2022-01-01] MEDS: ALBUTEROL/IPRATROPIUM 3 ML NEB RESP TX SCH ×4 (01:49→19:35)
[2022-01-01] MEDS: BENZONATATE 100 MG CAPSULE PO SCH ×3 (09:32→20:28)
[2022-01-01] MEDS: DOCUSATE SODIUM 100 MG CAPSULE PO SCH ×2 (09:32→20:28)
[2022-01-01] MEDS: carvediloL 3.125 MG TABLET PO SCH ×2 (09:32→20:28)
[2022-01-01] MEDS: GABAPENTIN 300 MG CAPSULE PO SCH ×4 (09:32→20:27)
[2022-01-01] MEDS: glipiZIDE 10 MG TABLET PO SCH (09:32)
[2022-01-01] MEDS: FLUCONAZOLE 100 MG TABLET PO SCH (09:32)
[2022-01-01] MEDS: PENTOXIFYLLINE 400 MG TABLET PO SCH ×3 (09:33→17:23)
[2022-01-01] MEDS: predniSONE 20 MG TABLET PO SCH (09:33)
[2022-01-01] MEDS: MORPHINE ER 15 MG TABLET PO SCH ×3 (09:33→20:28)
[2022-01-01] MEDS: PANTOPRAZOLE 40 MG TABLET PO SCH (09:33)
[2022-01-01] MEDS: AMITRIPTYLINE 50 MG TABLET PO SCH ×3 (09:33→20:28)
[2022-01-01] MEDS: SERTRALINE 50 MG TABLET PO SCH (09:33)
[2022-01-01] MEDS: POLYETHYLENE GLYCOL POWDER 17 GM PACK PO SCH (09:36)
[2022-01-01] MEDS: ASCORBIC ACID 500 MG TABLET PO SCH (09:36)
[2022-01-01] MEDS: ASPIRIN CHEW 81 MG TABLET PO SCH (12:24)
[2022-01-01] MEDS: sitaGLIPtin 25 MG TABLET PO SCH (12:24)
[2022-01-01] MEDS: MULTIVITAMIN (CENTRUM) TABLET PO SCH (12:24)
[2022-01-01] MEDS: LIDOCAINE 5% PATCH TRANSDERM SCH (15:39)
[2022-01-01] MEDS: glipiZIDE 5 MG TABLET PO SCH (17:23)
[2022-01-01] MEDS: INSULIN GLARGINE 100 UNIT/ML SUBCUT SCH (20:27)
[2022-01-01] MEDS: traZODone 50 MG TABLET PO SCH (20:28)
[2022-01-01] MEDS: SIMVASTATIN 40 MG TABLET PO SCH (20:28)
[2022-01-01] MEDS: tiZANidine 4 MG TABLET PO SCH (20:28)
[2022-01-02] MEDS: INSULIN REGULAR 100 UNIT/ML SUBCUT SCH ×4 (00:10→19:38)
[2022-01-02] MEDS: ALBUTEROL/IPRATROPIUM 3 ML NEB RESP TX SCH ×4 (01:40→19:45)
[2022-01-02 06:32] LABS: Alanine Aminotransferase 29 U/L (16-61); Albumin 2.7 G/DL (3.4-5.0); Alkaline Phosphatase 59 U/L (45-117); Aspartate Amino Transferase 16 U/L (0-37); Bilirubin,Total < 0.39 MG/DL (0.20-1.00); Blood Urea Nitrogen 34 MG/DL (7-18); Calcium 8.5 MG/DL (8.5-10.1); Carbon Dioxide 29 MMOL/L (21-32); Estimated Glom Filtration Rate 57 ML/MIN; Glucose 163 MG/DL (74-106); Osmolality,Calculated 290.4 MOS/KG (273-304); Potassium 4.7 MMOL/L (3.5-5.1); Sodium 140 MMOL/L (136-145); Total Protein 6.5 G/DL (6.4-8.2)
[2022-01-02 06:56] LABS: Basophils % 0.4 % (0.0-0.8); Eosinophils # 0.3 10*3/uL (0.0-0.87); Eosinophils % 2.3 % (0.00-10.9); Hematocrit 33.2 VOL% (42.0-52.0); Hemoglobin 9.9 GM/DL (14.0-18.0); Immature Granulocytes % 0.9 %; Lymphocytes % 17.9 % (21.2-54.2); Mean Corpuscular HGB Conc 29.8 GM/DL (32-36); Mean Corpuscular Volume 85.3 FL (87-102); Mean Platelet Volume 10.9 FL (9.6-12.0); Monocytes % 10.7 % (1.7-12.7); Neutrophils % 67.8 % (38.7-73.9); Platelet Count 259 T/CUMM (130-400); Red Blood Count 3.89 MC/CUMM (3.8-5.5); Red Cell Distribution Width 18.5 % (9.3-17.3); White Blood Count 11.4 T/CUMM (4-12)
[2022-01-02] MEDS: glipiZIDE 10 MG TABLET PO SCH (09:43)
[2022-01-02] MEDS: PANTOPRAZOLE 40 MG TABLET PO SCH (09:44)
[2022-01-02] MEDS: carvediloL 3.125 MG TABLET PO SCH ×2 (09:44→21:19)
[2022-01-02] MEDS: PENTOXIFYLLINE 400 MG TABLET PO SCH ×3 (09:44→17:33)
[2022-01-02] MEDS: DOCUSATE SODIUM 100 MG CAPSULE PO SCH ×2 (09:44→21:18)
[2022-01-02] MEDS: FLUCONAZOLE 100 MG TABLET PO SCH (09:44)
[2022-01-02] MEDS: AMITRIPTYLINE 50 MG TABLET PO SCH ×3 (09:44→21:19)
[2022-01-02] MEDS: BENZONATATE 100 MG CAPSULE PO SCH ×3 (09:45→21:18)
[2022-01-02] MEDS: predniSONE 20 MG TABLET PO SCH (09:45)
[2022-01-02] MEDS: GABAPENTIN 300 MG CAPSULE PO SCH ×4 (09:46→21:18)
[2022-01-02] MEDS: MORPHINE ER 15 MG TABLET PO SCH ×3 (09:46→21:19)
[2022-01-02] MEDS: ASCORBIC ACID 500 MG TABLET PO SCH (09:46)
[2022-01-02] MEDS: SERTRALINE 50 MG TABLET PO SCH (09:46)
[2022-01-02] MEDS: POLYETHYLENE GLYCOL POWDER 17 GM PACK PO SCH (09:48)
[2022-01-02] MEDS: LIDOCAINE 5% PATCH TRANSDERM SCH (09:52)
[2022-01-02] MEDS: MULTIVITAMIN (CENTRUM) TABLET PO SCH (11:14)
[2022-01-02] MEDS: sitaGLIPtin 25 MG TABLET PO SCH (11:14)
[2022-01-02] MEDS: ASPIRIN CHEW 81 MG TABLET PO SCH (11:14)
[2022-01-02] MEDS: glipiZIDE 5 MG TABLET PO SCH (16:22)
[2022-01-02] MEDS: tiZANidine 4 MG TABLET PO SCH (21:19)
[2022-01-02] MEDS: SIMVASTATIN 40 MG TABLET PO SCH (21:19)
[2022-01-02] MEDS: traZODone 50 MG TABLET PO SCH (21:19)
[2022-01-02] MEDS: INSULIN GLARGINE 100 UNIT/ML SUBCUT SCH (21:19)
[2022-01-03] MEDS: INSULIN REGULAR 100 UNIT/ML SUBCUT SCH ×5 (00:14→23:56)
[2022-01-03 05:39] LABS: Basophils % 0.4 % (0.0-0.8); Eosinophils # 0.2 10*3/uL (0.0-0.87); Eosinophils % 1.6 % (0.00-10.9); Hemoglobin 9.8 GM/DL (14.0-18.0); Immature Granulocytes % 0.8 %; Immature Granulocytes Absolute 0.09 #; Lymphocytes % 17.6 % (21.2-54.2); Mean Corpuscular HGB Conc 29.7 GM/DL (32-36); Mean Corpuscular Volume 85.1 FL (87-102); Mean Platelet Volume 10.6 FL (9.6-12.0); Monocytes % 10.7 % (1.7-12.7); Neutrophils % 68.9 % (38.7-73.9); Platelet Count 261 T/CUMM (130-400); Red Blood Count 3.88 MC/CUMM (3.8-5.5); Red Cell Distribution Width 18.5 % (9.3-17.3); White Blood Count 11.3 T/CUMM (4-12)
[2022-01-03 06:00] LABS: Alanine Aminotransferase 26 U/L (16-61); Albumin 2.8 G/DL (3.4-5.0); Alkaline Phosphatase 58 U/L (45-117); Aspartate Amino Transferase 15 U/L (0-37); Bilirubin,Total < 0.39 MG/DL (0.20-1.00); Blood Urea Nitrogen 39 MG/DL (7-18); Calcium 8.5 MG/DL (8.5-10.1); Carbon Dioxide 34 MMOL/L (21-32); Estimated Glom Filtration Rate 49 ML/MIN; Glucose 123 MG/DL (74-106); Osmolality,Calculated 290.3 MOS/KG (273-304); Potassium 5.4 MMOL/L (3.5-5.1); Sodium 141 MMOL/L (136-145); Total Protein 6.4 G/DL (6.4-8.2)
[2022-01-03] MEDS ORDERED: PROMETHAZINE 25 MG/1 ML VIAL IM ONE (07:00)
[2022-01-03] MEDS ORDERED: MEPERIDINE 50 MG/1 ML VIAL IM ONE (07:00)
[2022-01-03] MEDS ORDERED: LIDOCAINE 1% 20 ML VIAL MISC INJ ONE (07:30)
[2022-01-03] MEDS ORDERED: LIDOCAINE 2% VISCOUS 100 ML BOTTLE SWISH/SPIT ONE (07:30)
[2022-01-03] MEDS ORDERED: MIDAZOLAM 2 MG/2 ML VIAL IV ONE (07:30)
[2022-01-03] MEDS ORDERED: LIDOCAINE 2% 20 ML VIAL RESP TX ONE (07:30)
[2022-01-03] MEDS: ALBUTEROL/IPRATROPIUM 3 ML NEB RESP TX SCH ×4 (07:39→19:04)
[2022-01-03] MEDS: PENTOXIFYLLINE 400 MG TABLET PO SCH ×3 (09:42→16:09)
[2022-01-03] MEDS: SERTRALINE 50 MG TABLET PO SCH (09:42)
[2022-01-03] MEDS: BENZONATATE 100 MG CAPSULE PO SCH ×3 (09:42→21:35)
[2022-01-03] MEDS: LIDOCAINE 5% PATCH TRANSDERM SCH (09:42)
[2022-01-03] MEDS: DOCUSATE SODIUM 100 MG CAPSULE PO SCH ×2 (09:42→21:35)
[2022-01-03] MEDS: POLYETHYLENE GLYCOL POWDER 17 GM PACK PO SCH (09:42)
[2022-01-03] MEDS: carvediloL 3.125 MG TABLET PO SCH ×2 (09:42→21:35)
[2022-01-03] MEDS: MORPHINE ER 15 MG TABLET PO SCH ×3 (09:42→21:35)
[2022-01-03] MEDS: glipiZIDE 10 MG TABLET PO SCH (09:42)
[2022-01-03] MEDS: predniSONE 20 MG TABLET PO SCH (09:42)
[2022-01-03] MEDS: PANTOPRAZOLE 40 MG TABLET PO SCH (09:42)
[2022-01-03] MEDS: GABAPENTIN 300 MG CAPSULE PO SCH ×4 (09:42→21:35)
[2022-01-03] MEDS: FLUCONAZOLE 100 MG TABLET PO SCH (09:42)
[2022-01-03] MEDS: AMITRIPTYLINE 50 MG TABLET PO SCH ×3 (09:42→21:35)
[2022-01-03] MEDS: ASCORBIC ACID 500 MG TABLET PO SCH (09:42)
[2022-01-03] MEDS: MULTIVITAMIN (CENTRUM) TABLET PO SCH (12:13)
[2022-01-03] MEDS: sitaGLIPtin 25 MG TABLET PO SCH (12:13)
[2022-01-03] MEDS: ASPIRIN CHEW 81 MG TABLET PO SCH (12:13)
[2022-01-03] MEDS: glipiZIDE 5 MG TABLET PO SCH (16:09)
[2022-01-03] MEDS: traZODone 50 MG TABLET PO SCH (21:34)
[2022-01-03] MEDS: tiZANidine 4 MG TABLET PO SCH (21:35)
[2022-01-03] MEDS: SIMVASTATIN 40 MG TABLET PO SCH (21:35)
[2022-01-03] MEDS: INSULIN GLARGINE 100 UNIT/ML SUBCUT SCH (21:35)
[2022-01-04] MEDS: ALBUTEROL/IPRATROPIUM 3 ML NEB RESP TX SCH ×4 (00:06→19:15)
[2022-01-04] MEDS: INSULIN REGULAR 100 UNIT/ML SUBCUT SCH ×3 (06:05→18:31)
[2022-01-04] MEDS: POLYETHYLENE GLYCOL POWDER 17 GM PACK PO SCH (09:31)
[2022-01-04] MEDS: PANTOPRAZOLE 40 MG TABLET PO SCH (09:33)
[2022-01-04] MEDS: MORPHINE ER 15 MG TABLET PO SCH ×3 (09:33→21:44)
[2022-01-04] MEDS: PENTOXIFYLLINE 400 MG TABLET PO SCH ×3 (09:33→17:22)
[2022-01-04] MEDS: glipiZIDE 10 MG TABLET PO SCH (09:33)
[2022-01-04] MEDS: BENZONATATE 100 MG CAPSULE PO SCH ×3 (09:33→21:45)
[2022-01-04] MEDS: FLUCONAZOLE 100 MG TABLET PO SCH (09:34)
[2022-01-04] MEDS: GABAPENTIN 300 MG CAPSULE PO SCH ×4 (09:34→21:45)
[2022-01-04] MEDS: AMITRIPTYLINE 50 MG TABLET PO SCH ×3 (09:34→21:46)
[2022-01-04] MEDS: DOCUSATE SODIUM 100 MG CAPSULE PO SCH ×2 (09:34→21:45)
[2022-01-04] MEDS: carvediloL 3.125 MG TABLET PO SCH ×2 (09:34→21:44)
[2022-01-04] MEDS: predniSONE 20 MG TABLET PO SCH (09:34)
[2022-01-04] MEDS: ASCORBIC ACID 500 MG TABLET PO SCH (09:34)
[2022-01-04] MEDS: SERTRALINE 50 MG TABLET PO SCH (09:36)
[2022-01-04] MEDS: LIDOCAINE 5% PATCH TRANSDERM SCH (09:38)
[2022-01-04 09:48] LABS: Basophils % 0.3 % (0.0-0.8); Eosinophils # 0.2 10*3/uL (0.0-0.87); Eosinophils % 1.6 % (0.00-10.9); Hemoglobin 9.6 GM/DL (14.0-18.0); Immature Granulocytes % 0.7 %; Immature Granulocytes Absolute 0.09 #; Lymphocytes # 1.6 10*3/uL (1.4-4.0); Mean Corpuscular Volume 84.4 FL (87-102); Mean Platelet Volume 10.3 FL (9.6-12.0); Monocytes % 8.9 % (1.7-12.7); Neutrophils % 76.5 % (38.7-73.9); Platelet Count 255 T/CUMM (130-400); Red Blood Count 3.79 MC/CUMM (3.8-5.5); Red Cell Distribution Width 18.6 % (9.3-17.3); White Blood Count 13.6 T/CUMM (4-12)
[2022-01-04 10:04] LABS: Calcium 8.5 MG/DL (8.5-10.1); Osmolality,Calculated 295.4 MOS/KG (273-304); Potassium 5.1 MMOL/L (3.5-5.1)
[2022-01-04] MEDS: BUDESONIDE/FORMOTEROL 160-4.5 INHALER 6 GM INH SCH ×2 (11:16→21:46)
[2022-01-04] MEDS: sitaGLIPtin 25 MG TABLET PO SCH (12:06)
[2022-01-04] MEDS: ASPIRIN CHEW 81 MG TABLET PO SCH (12:06)
[2022-01-04] MEDS: MULTIVITAMIN (CENTRUM) TABLET PO SCH (12:07)
[2022-01-04] MEDS: glipiZIDE 5 MG TABLET PO SCH (17:22)
[2022-01-04] MEDS: tiZANidine 4 MG TABLET PO SCH (21:44)
[2022-01-04] MEDS: traZODone 50 MG TABLET PO SCH (21:46)
[2022-01-04] MEDS: SIMVASTATIN 40 MG TABLET PO SCH (21:46)
[2022-01-04] MEDS: INSULIN GLARGINE 100 UNIT/ML SUBCUT SCH (21:53)
[2022-01-05] MEDS: INSULIN REGULAR 100 UNIT/ML SUBCUT SCH ×2 (00:14→05:39)
[2022-01-05] MEDS: ALBUTEROL/IPRATROPIUM 3 ML NEB RESP TX SCH ×2 (00:30→07:08)
[2022-01-05 05:18] LABS: Basophils % 0.3 % (0.0-0.8); Eosinophils # 0.1 10*3/uL (0.0-0.87); Eosinophils % 1.3 % (0.00-10.9); Immature Granulocytes % 0.6 %; Immature Granulocytes Absolute 0.06 #; Lymphocytes # 1.6 10*3/uL (1.4-4.0); Lymphocytes % 15.1 % (21.2-54.2); Mean Corpuscular Volume 83.8 FL (87-102); Mean Platelet Volume 10.3 FL (9.6-12.0); Monocytes % 9.3 % (1.7-12.7); Neutrophils % 73.4 % (38.7-73.9); Platelet Count 244 T/CUMM (130-400); Red Blood Count 3.58 MC/CUMM (3.8-5.5); Red Cell Distribution Width 18.7 % (9.3-17.3); White Blood Count 10.6 T/CUMM (4-12)
[2022-01-05 05:33] LABS: Calcium 8.4 MG/DL (8.5-10.1); Osmolality,Calculated 288.5 MOS/KG (273-304); Potassium 4.5 MMOL/L (3.5-5.1)
[2022-01-05 07:48] VITALS: BP 137/78
[2022-01-05] MEDS: PENTOXIFYLLINE 400 MG TABLET PO SCH (08:21)
[2022-01-05] MEDS: DOCUSATE SODIUM 100 MG CAPSULE PO SCH (08:21)
[2022-01-05] MEDS: AMITRIPTYLINE 50 MG TABLET PO SCH (08:21)
[2022-01-05] MEDS: ENOXAPARIN 40 MG/0.4 ML SYRINGE SUBCUT SCH (08:21)
[2022-01-05] MEDS: SERTRALINE 50 MG TABLET PO SCH (08:21)
[2022-01-05] MEDS: glipiZIDE 10 MG TABLET PO SCH (08:21)
[2022-01-05] MEDS: POLYETHYLENE GLYCOL POWDER 17 GM PACK PO SCH (08:21)
[2022-01-05] MEDS: BUDESONIDE/FORMOTEROL 160-4.5 INHALER 6 GM INH SCH (08:21)
[2022-01-05] MEDS: GABAPENTIN 300 MG CAPSULE PO SCH (08:21)
[2022-01-05] MEDS: predniSONE 20 MG TABLET PO SCH (08:21)
[2022-01-05] MEDS: BENZONATATE 100 MG CAPSULE PO SCH (08:21)
[2022-01-05] MEDS: MORPHINE ER 15 MG TABLET PO SCH (08:21)
[2022-01-05] MEDS: PANTOPRAZOLE 40 MG TABLET PO SCH (08:21)
[2022-01-05] MEDS: ASCORBIC ACID 500 MG TABLET PO SCH (08:21)
[2022-01-05] MEDS: LIDOCAINE 5% PATCH TRANSDERM SCH (08:21)
[2022-01-05] MEDS: carvediloL 3.125 MG TABLET PO SCH (08:21)
[2022-01-05] MEDS: FLUCONAZOLE 100 MG TABLET PO SCH (08:21)
[2022-01-05] MEDS ORDERED: CIPROFLOXACIN 500 MG TABLET PO SCH (11:00)
== END 2022-01-05 11:59 | disposition home or self-care (01) | DRG 202 ==
LOC: N.EDINP 17:41 → N.ED 17:41 → N.5E 12-21 16:32
PROVIDERS: ADMIT Internal Medicine; ATTEND Internal Medicine
PROC: COLONBX (2021-12-28 08:35)